=== PATIENT | male | born 1960 | race American Indian/Alaskan Native ===

== ENCOUNTER 2021-03-19 15:56 | Emergency (ER) | payer BC ==
[2021-03-19 16:11] VITALS: TEMP 99.1; BMI 23.2
[2021-03-19 17:11] LABS: WHITE BLOOD COUNT 7.1 K/mm3 (4.0-10.8)
[2021-03-19 17:17] LABS: BASO % 3.9 % (0-2.0); EOS % 2.5 % (0-4.5); HEMATOCRIT 41.8 % (35.4-49); HEMOGLOBIN 13.6 GM/dl (11.7-16.9); LYMPH % 22.9 % (8-40); MCH 29.5 pg (25.7-33.7); MCHC 32.5 g/dl (32.0-35.9); MEAN CELL VOLUME 90.8 fl (80-96); MEAN PLT VOLUME 8.9 fl (7.5-11.1); MONO % 8.4 % (3.8-10.2); NEUT % 62.3 % (42.8-82.8); PLATELET COUNT 279 10^3/uL (134-434); RBC 4.61 M/mm3 (4.00-5.60); RDW 12.2 % (11.9-15.9)
[2021-03-19 17:29] LABS: ALBUMIN 4.2 g/dl (3.4-5.0); BILIRUBIN,TOTAL 0.7 mg/dl (0.2-1); CALCIUM 9.5 mg/dl (8.5-10); CREATININE 0.8 mg/dl (0.55-1.3)
[2021-03-19 18:38] VITALS: BP 118/76; PULSE 78
== END 2021-03-19 19:02 | disposition home or self-care (01) ==
LOC: FER 15:56
DX: K65.9 Peritonitis, unspecified (principal)
CPT/HCPCS: 36415; 74177-TC; 80053; 81003; 83690; 85025; 99284-25; Q9967